=== PATIENT | male | born 1960 | race Caucasian/White ===

== ENCOUNTER → 2024-03-26 | Outpatient (CLI) | payer BC, MEDICARE ==
[~2024-03-26] MED LIST: HYDR-3713 PO; IBUP200C25 PO; MAGN250T7 PO; MELO7.5T7 PO; NEUR300C PO; TIZA4CAP PO
== END ==
LOC: M PLAIMG 09:24
PROVIDERS: ATTEND Registered Nurse
DX: I27.20 Pulmonary hypertension, unspecified (principal); I08.3 Combined rheumatic disorders of mitral, aortic and tricuspid valves

== ENCOUNTER → 2024-08-07 | Outpatient (CLI) | payer BC, MEDICARE ==
[~2024-08-07] MED LIST changes: +ALLO100T PO; +DULO1CAP6 PO; +MAGN400C2 PO; +MODA200T15 PO; +OMEP-173 PO; +THERTAB52 PO
[2024-08-07 10:44] LABS: BASO # 0.1 10^3/uL (0.0-0.2); EOS # 0.1 10^3/uL (0.0-0.5); EOS % 1.3 % (0.0-3.0); HEMATOCRIT 40.4 % (42.0-52.0); HEMOGLOBIN 12.8 g/dl (13.5-17.5); LYMPH # 1.4 10^3/uL (1.5-5.0); LYMPH % 26.4 % (24.0-44.0); MEAN CORPUSCULAR HEMOGLOBIN 29.4 pg (27.0-33.0); MEAN CORPUSCULAR HGB CONC 31.7 g/dl (32.0-36.5); MEAN CORPUSCULAR VOLUME 92.7 fl (80.0-96.0); MONO # 0.4 10^3/uL (0.0-0.8); MONO % 8.2 % (2.0-8.0); NEUTROPHILS # 3.3 10^3/uL (1.5-8.5); NEUTROPHILS % 62.9 % (36.0-66.0); PLATELET COUNT, AUTOMATED 216 10^3/uL (150-450); RED BLOOD COUNT 4.36 10^6/uL (4.30-6.10); WHITE BLOOD COUNT 5.3 10^3/uL (4.0-10.0)
[2024-08-07 11:08] LABS: ALBUMIN 3.8 G/DL (3.2-5.2); ALKALINE PHOSPHATASE 84 U/L (40-129); ALT/SGPT 17 U/L (7.0-40); AST/SGOT 13 U/L (<34); BILIRUBIN,TOTAL 0.5 MG/DL (0.3-1.2); BLOOD UREA NITROGEN 21 MG/DL (9-23); CALCIUM LEVEL 9.1 MG/DL (8.3-10.6); CARBON DIOXIDE LEVEL 29 MMOL/L (20-31); CHLORIDE LEVEL 105 MMOL/L (98-107); CHOLESTEROL LEVEL 192 MG/DL (<200); CHOLESTEROL RISK RATIO 3.21 (<5); GLOMERULAR FILTRATION RATE > 60.0 (>49); GLUCOSE, FASTING 113 MG/DL (74-106); HDL CHOLESTEROL 59.8 MG/DL (>40); NON-HDL-C 132.2 MG/DL; POTASSIUM SERUM 4.7 MMOL/L (3.5-5.1); SODIUM LEVEL 142 MMOL/L (136-145); TOTAL PROTEIN 6.6 G/DL (5.7-8.2); TRIGLYCERIDES LEVEL 86 MG/DL (<150)
== END ==
LOC: M LAB 10:17
PROVIDERS: ATTEND Registered Nurse
DX: Z01.810 Encounter for preprocedural cardiovascular examination (principal); I49.5 Sick sinus syndrome; Z95.0 Presence of cardiac pacemaker

== ENCOUNTER 2024-08-14 08:00 | Day surgery (SDC) | payer BC, MEDICARE ==
[~2024-08-14] VITALS: Ht 175.3 cm; Wt 101.6 kg
[2024-08-14] MEDS: LR 1,000 ML IV SCH (09:25)
[2024-08-14] MEDS: ceFAZolin SOD 2 GM IV ONCE IV ONE (10:09)
[2024-08-14] MEDS ORDERED: MIDAZOLAM INJ 2MG/2ML VIAL As Ordered ONE (10:16)
[2024-08-14] MEDS ORDERED: propofoL 200 MG/20 ML VIAL As Ordered ONE (10:16)
[2024-08-14] MEDS ORDERED: fentaNYL 100 MCG/2 ML INJECTION As Ordered ONE (10:16)
[2024-08-14] MEDS ORDERED: LIDOCAINE 2% 100MG/5ML SDV (FOR ANES.) As Ordered ONE (10:16)
[2024-08-14] MEDS: LIDOCAINE 1% SDV 30ML VIAL As Ordered ONE (10:21)
[2024-08-14] MEDS: ceFAZolin 1GM VIAL As Ordered ONE (10:29)
[2024-08-14] MEDS: AMIODARONE 150MG/3ML VIAL As Ordered ONE (10:31)
[2024-08-14] MEDS: ISOVUE-300 61% 100ML VIAL As Ordered ONE (10:31)
[2024-08-14 11:40] VITALS: BP 125/80; TEMP 98.1; O2SAT 97
== END 2024-08-14 11:50 | disposition home or self-care (01) ==
LOC: M SDC 08:00
PROVIDERS: ATTEND Internal Medicine Cardiovascular Disease
DX: Z45.010 Encounter for checking and testing of cardiac pacemaker pulse generator [battery] (principal); I49.5 Sick sinus syndrome; I27.20 Pulmonary hypertension, unspecified; G47.33 Obstructive sleep apnea (adult) (pediatric); M10.9 Gout, unspecified; G43.909 Migraine, unspecified, not intractable, without status migrainosus; Z79.899 Other long term (current) drug therapy; Z79.61 Long term (current) use of immunomodulator; K21.9 Gastro-esophageal reflux disease without esophagitis; Z90.49 Acquired absence of other specified parts of digestive tract; Z87.891 Personal history of nicotine dependence
CPT/HCPCS: 33228; C1785; J0690; J2250; J3010